=== PATIENT | female | born 1960 | race Two or more races ===

== ENCOUNTER 2025-01-01 06:59 | Outpatient (OUT) | payer BC, SELFPAY ==
--- OUTSIDE RECORDS SUMMARY | 2022-08-12 09:00 | XMS_ITS | Continuity of Care Document ---
Author Organization [facility] Address [address] [place] [address] Phone Care Team Providers Care Cyber Software Engineer Name Role Phone Malaika QUINTEROS Andre Unavailable Unavailable Procedures Procedure Date COVID-19 Antigen Test COVID-19 Antigen Test Advance Directives Directive Yes / No Effective Date File Name No Information Encounters Encounter Description Practice Location Reason(s) For Visit Diagnoses Date Provider Providers Copied on Encounter [facility], [address], [place], [id number], [place] tel:[phone] COVID [facility] Encounter For Screening For Covid-19 Malaika Bishop. [address], [place], [id number], [place]. tel:[phone] Family History Family Member Type Diagnosis Age At Onset No Information Payers Payer name Insurance type Covered libertarian ID Authoriza tion(s) No Information Social History Type Description Quantity Date Captured Comments Alcohol Use Details Unknown Caffeine Use Details Unknown Tobacco Use Status No Information Smoking Status No Information Sex Female Sexual Orientation Straight or heterosexual Gender Identity Female Chief Complaint And Reason For Visit No Information Reason For Referral Reason For Referral No Information Plan Of Treatment Date Type Action Status Goal Depression screening. Due on due Goal Mammogram. Due on due Goal Zoster vaccine (1st). Due on due Goal FOBT. Due on due Goal Tdap. Due on due Goal Colonoscopy. Due on due Goal Lipid panel. Due on due Goal Tdap Vaccine. Due on 2022 due Goal PRAPARE ASSESSMENT. Due on A due Goal Influenza vaccine. Due on Ap r due History Of Present Illness Encounter Date Complaint History Of Prese nt Illness No Information Functional Status Date Functional Assessmen t No Information Instructions Date Instruction Additional Infor mation No Information Assessments Type Assessment Date assessment Encounter For Screening For Covi d- Patient Care Teams Name Effective Dates (start - stop) Status Members No Information
--- OUTSIDE RECORDS SUMMARY | 2025-01-01 07:05 | XMS_ITS | Encounter Summary ---
Author Organization [facility] Address [address] [place] [address] Care Team Providers Care Delivery Merchandiser Name Role Phone Sharath Jolley MD Primary Care Provider [phone] Shabnam West LIME BURNER Unavailable [phone] Sharath Jolley MD Primary Care Provider [phone] Shabnam West LIME BURNER Unavailable [phone] Encounter Details Date Type Department Care Team (Late st Contact Info) Description 04/23/2023 Abstract [facility] [address] [place] [address] Shabnam West LIME BURNER [address] [place] [address] Social History Tobacco Use Types Packs/Day Years Used Date Smoking Tobacco: Never Tobacco Cessation:Counseling Given: Not Answered Alcohol Use Standard Drinks/Week Comments Yes 0 (1 standard drink = 0.6 oz pure alcohol) a variable amount, caffeine: chocolate, tea Comments Unknown Sex and Gender Information Value Date Recorded Sex Assigned at Not on file Legal Sex Female 6:37 PM EDT Gender Identity Not on file Sexual Orientation Not on file documented as of this encounter Plan of Treatment Not on file documented as of this encounter Visit Diagnoses Not on filedocumented in this encounter Care Teams Delivery Merchandiser Relationship Specialty Start Date End Date Sharath Jolley MD PCP - General Family Medicine 02/09/23 08/20/23 Sharath Jolley MD PCP - General Family Medicine 08/21/23 Shabnam West NP [address] [place] [address] PCP - [facility] 02/23/24 Shabnam West NP Nurse Practitioner Family Medicine 02/09/23 documented as of this encounter
--- OUTSIDE RECORDS SUMMARY | 2025-01-01 07:05 | XMS_ITS | Encounter Summary ---
Author Organization [facility] Address [address] [place] [address] Care Team Providers Care Route Contractor Name Role Phone Sharath Jolley MD Primary Care Provider [phone] Shabnam West NP Unavailable [phone] Sharath Jolley MD Primary Care Provider [phone] Shabnam West NP Unavailable [phone] Encounter Details Date Type Department Care Team (Late st Contact Info) Description 04/19/2023 Orders Only [facility] [address] [place] [address] Shabnam West NP [address] [place] [address] Social History Tobacco Use Types Packs/Day Years Used Date Smoking Tobacco: Never Comments Unknown Sex and Gender Information Value Date Recorded Sex Assigned at Not on file Legal Sex Female 6:37 PM EDT Gender Identity Not on file Sexual Orientation Not on file documented as of this encounter Plan of Treatment Not on file documented as of this encounter Procedures Procedure Name Priority Date/Time Associated Diagnosis Comments MISCELLANEOUS LAB TEST Routine 03/22/2023 10:36 AM EST documented in this encounter Results * - Miscellaneous Test (03/22/2023 10:36 AM EST) us Shabnam Aichholz SUPERVISOR TILE AND MOTTLE LAB BLOOD ORDERABLES Final Resu lt documented in this encounter Visit Diagnoses Not on filedocumented in this encounter Care Teams Route Contractor Relationship Specialty Start Date End Date Sharath Jolley MD PCP - General Family Medicine 02/09/23 08/20/23 Sharath Jolley MD PCP - General Family Medicine 08/21/23 Shabnam West NP [address] [place] [address] PCP - [facility] 02/23/24 Shabnam West NP Nurse Practitioner Family Medicine 02/09/23 documented as of this encounter
--- OUTSIDE RECORDS SUMMARY | 2025-01-01 07:05 | XMS_ITS | Patient Health Record ---
Author Organization [facility] Address [address] [place], [place] [id number] Care Team Providers Care Fire Extinguisher Repairer Name Role Phone Juan Ramon Simon Unavailable [phone] Allergies No Known Allergies Reason For Referral No Information Social History Tobacco Use: Social History Observation Description Date Details (start date - stop date) Never Smoker NA - NA Sex Assigned At : Social History Observation Description Sex Assigned At Female Tobacco Use/Smoking Question Answer Notes Tobacco use: nonsmoker Problems Problem Type SNOMED Code ICD Code Onset Dates Problem Status W/U Status Risk Notes Problem Elevated blood-pressure reading without diagnosis of hypertension (308855491) Elevated blood pressure reading (R03.0) Active confirmed Problem 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
--- OUTSIDE RECORDS SUMMARY | 2025-01-01 07:05 | XMS_ITS | Encounter Summary ---
Author Organization [facility] Address [address] [place] [address] Care Team Providers Care Postdoctoral Scientist Name Role Phone Shabnam West MANAGER [place] Unavailable [phone] Sharath Jolley MD Primary Care Provider [phone] Shabnam West MANAGER [place] Unavailable [phone] Reason for Visit * Reason Comments Med Refill Encounter Details Date Type Department Care Team (Late st Contact Info) Description 04/08/2024 Refill [facility] [address] [place] [address] Shabnam West NP [address] [facility] [place] [address] Generalized anxiety disorder with panic attacks ; Moderate episode of recurrent major depressive disorder (HCC) Social History Tobacco Use Types Packs/Day Years Used Date Smoking Tobacco: Never Alcohol Use Standard Drinks/Week Comments Yes 0 (1 standard drink = 0.6 oz pure alcohol) a variable amount, caffeine: chocolate, tea Humiliation, Afraid, Rape, and Kick questionnair e Answer Date Recorded Within the last year, have y ou been afraid of your partner or ex-partner? No 05/07/2023 Within the last year, have y ou been humiliated or emotionally abused in other ways by your partner or ex-partner? No Within the last year, have y ou been kicked, hit, slapped, or otherwise physically hurt by your partner or ex-partner? No 05/07/2023 Within the last year, have y ou been raped or forced to have any kind of sexual activity by your partner or ex-partner? No 05/07/2023 Social Connection and Isolat ion Panel [NHANES] Answer Date Recorded In a typical week, how many times do you talk on the phone with family, friends, or neighbors? More than three times a week 05/07/2023 How often do you get togethe r with friends or relatives? Once a week 05/07/2023 How often do you attend chur TRIRIGA or mormon services? Never 05/07/2023 Do you belong to any clubs o r organizations such as temple groups, unions, fradeeplocal or athletic groups, or school groups? No 05/07/2023 How often do you attend meet ings of the clubs or organizations you belong to? Never 05/07/2023 Are you , , di vorced, , never , or living with a partner? 05/07/2023 AUDIT-C Answer Date Recorded Q1: How often do you have a drink containing alcohol? Never 05/07/2023 Q2: How many drinks containi ng alcohol do you have on a typical day when you are drinking? Patient does not drink Q3: How often do you have si x or more drinks on one occasion? Never 05/07/2023 Overall Financial Resource Strain (CARDIA) Answe r Date Recorded How hard is it for you to pa y for the very basics like food, housing, medical care, and heating? Not hard at all 05/07/2023 [facility] - Occupational Stress Questionnaire Answer Date Recorded Do you feel stress - tense, restless, nervous, or anxious, or unable to sleep at night because your mind is troubled all the time - these days? Very much 05/07/2023 Exercise Vital Sign Answer Date Recorde d On average, how many days pe r week do you engage in moderate to strenuous exercise (like a brisk walk)? 0 days 05/07/2023 On average, how many minutes do you engage in exercise at this level? 0 min 05/07/2023 Hunger Vital Sign Answer Date Recorded Within the past 12 months, y ou worried that your food would run out before you got the money to buy more. Never true 05/07/19 24 Within the past 12 months, t he food you bought just didn't last and you didn't have money to get more. Never true 05/07/2023 PRAPARE - Transportation Answer Date Re corded In the past 12 months, has l ack of transportation kept you from medical appointments or from getting medications? No 04/24 In the past 12 months, has l ack of transportation kept you from meetings, work, or from getting things needed for daily living? No 05/07/2023 Housing Stability Vital Sign Answer Emile e Recorded In the last 12 months, was t here a time when you were not able to pay the mortgage or rent on time? No 05/07/2023 In the last 12 months, how many places have you lived? 1 05/07/2023 In the last 12 months, was t here a time when you did not have a steady place to sleep or slept in a [place] [facility] [place] (including now)? No 05/07/2023 Comments Unknown Sex and Gender Information Value Date Recorded Sex Assigned at Not on file Legal Sex Female 6:37 PM EDT Gender Identity Not on file Sexual Orientation Not on file documented as of this encounter Plan of Treatment Not on file documented as of this encounter Visit Diagnoses Diagnosis Generalized anxiety disorder with panic attacks Moderate episode of recurrent major depressive disorder (HCC) documented in this encounter Care Teams Postdoctoral Scientist Relationship Specialty Start Date End Date Sharath Jolley MD PCP - General Family Medicine 08/21/23 Shabnam West NP [address] [place] [address] [facility] 02/23/24 Shabnam West NP Nurse Practitioner Family Medicine 02/09/23 documented as of this encounter
--- OUTSIDE RECORDS SUMMARY | 2025-01-01 07:05 | XMS_ITS | Encounter Summary ---
Author Organization [facility] Address [address] [place] [address] Care Team Providers Care Medieval English Literature Professor Name Role Phone Shabnam West NP Unavailable [phone] Sharath Jolley MD Primary Care Provider [phone] Encounter Details Date Type Department Care Team (Late st Contact Info) Description 11/08/2024 Orders Only [facility] [address] [place] [address] Shabnam West NP [address] [place] [address] Social History Tobacco Use Types Packs/Day Years Used Date Smoking Tobacco: Never Alcohol Use Standard Drinks/Week Comments Yes 0 (1 standard drink = 0.6 oz pure alcohol) a variable amount, caffeine: chocolate, tea [id number] Health Literacy Answer Date Recor ded How often do you need to hav e someone help you when you read instructions, pamphlets, or other written material from your doctor or pharmacy? Never 05/09/2024 Humiliation, Afraid, Rape, and Kick questionnair e [...] neighbors? More than three times a week 05/09/2024 How often do you get togethe r with friends or relatives? Once a week 05/09/2024 How often do you attend chur ch or cheondoism services? Never 05/09/2024 Do you belong to any clubs o r organizations such as mu-ism groups, unions, fraOnBeep or athletic groups, or school groups? No 05/09/2024 How often do you attend meet ings of the clubs or organizations you belong to? Never 05/09/2024 Are you , , di vorced, , never , or living with a partner? 05/09/2024 AUDIT-C Answer Date Recorded Q1: How often do you have a drink containing alcohol? Never 05/09/2024 Q2: How many drinks containi ng alcohol do you have on a typical day when you are drinking? Patient does not drink Q3: How often do you have si x or more drinks on one occasion? Never 05/09/2024 Overall Financial Resource Strain (CARDIA) Answe r Date Recorded How hard is it for you to pa y for the very basics like food, housing, medical care, and heating? Not very hard 05/09/2024 [facility] - Occupational Stress Questionnaire Answer Date Recorded Do you feel stress - tense, restless, nervous, or anxious, or unable to sleep at night because your mind is troubled all the time - these days? Very much 05/09/2024 Exercise Vital Sign Answer Date Recorde d On average, how many days pe r week do you engage in moderate to strenuous exercise (like a brisk walk)? 0 days 05/09/2024 On average, how many minutes do you engage in exercise at this level? 0 min 05/09/2024 Hunger Vital Sign Answer Date Recorded Within the past 12 months, y ou worried that your food would run out before you got the money to buy more. Never true 05/09/19 25 Within the past 12 months, t he food you bought just didn't last and you didn't have money to get more. Never true 05/09/2024 PRAPARE - Transportation Answer Date Re corded In the past 12 months, has l ack of transportation kept you from medical appointments or from getting medications? No 04/24 In the past 12 months, has l ack of transportation kept you from meetings, work, or from getting things needed for daily living? No 05/09/2024 Housing Stability Vital Sign Answer Emile e [...] place to sleep or slept in a fpc (including now)? No 05/07/2023 Housing Stability Vital Sign Answer Emile e Recorded In the last 12 months, was t here a time when you were not able to pay the mortgage or rent on time? No 05/09/2024 In the past 12 months, how m any times have you moved where you were living? 0 05/09/2024 At any time in the past 12 m [facility], were you homeless or living in a fpc (including now)? No 05/09/2024 Comments Unknown Sex and Gender Information Value Date Recorded Sex Assigned at Not on file Legal Sex Female 6:37 PM EDT Gender Identity Not on file Sexual Orientation Not on file documented as of this encounter Plan of Treatment Not on file documented as of this encounter Procedures Procedure Name Priority Date/Time Associated Diagnosis Comments SCANNED LABS Routine 11/08/2024 9:49 AM EDT documented in this encounter Results * SCANNED LABS (11/08/2024 9:49 AM EDT) us Shabnam West GEOTHERMAL PLANT MANAGER LAB CHG PERFORMABLES Final Resu lt documented in this encounter Visit Diagnoses Not on filedocumented in this encounter Care Teams Medieval English Literature Professor Relationship Specialty Start Date End Date Sharath Jolley MD PCP - General Family Medicine 08/21/23 Shabnam West NP Nurse Practitioner Family Medicine 02/09/23 documented as of this encounter
--- OUTSIDE RECORDS SUMMARY | 2025-01-01 07:05 | XMS_ITS | Clinical Summary ---
Author Organization [facility] Address [address] [place] [address] Care Team Providers Care Fishing Tool Operator Name Role Phone Shabnam West NP Unavailable [phone] Sharath Jolley MD Primary Care Provider [phone] Allergies No known active allergies Medications OLANZapine (ZyPREXA) 2.5 MG tabletIndicatio ns:Generalized anxiety disorder with panic attacks,Major depressive disorder, recurrent, moderate (HCC) Take 1 tablet (2.5 mg) by mouth at bedtime 30 tablet 1 11/25/2024 Active Active Problems Problem Noted Date Diagnosed Date Encounter for adult wellness visit 05/09/2024 Assessment & Plan (05/09/2024 7:30 AM EST): Reviewed Ht/Wt/BMI Recommend eye exam yearly Recommend dental exams twice a year Balance work/leisure activities Exercises is recommended most days of the week (appropriate as chronic conditions allow) Follow up yearly and prn Chronic tension-type headache, not intractable 0 05/09/2024 Assessment & Plan (05/09/2024 3:34 PM EST): Secondary causes: migraines, stress, high blood pressure, stopping caffeine Recommend eye exam Follow up in 6 weeks Normal neuro exam, no red flag descriptors Generalized anxiety disorder with panic attacks 02/28/2024 Assessment & Plan (11/25/2024 7:18 PM EDT): See depression Assessment & Plan (05/09/2024 3:25 PM EST): Last appt started escitalopram Overall about 50% better Assessment & Plan (04/04/2024 3:31 PM EST): Last appt started fluoxetine was helping sxs, but side effect night cruz and fatigue Will stop fluoxetine, trial lexapro at 10mg daily Take medication only as directed. This medication will take approximately 4-6 weeks to become effective. If any suicidal thoughts, thoughts of hurting others, or hallucinations contact the office or proceed to the Emergency Room for mental health evaluation. Medication may cause dry mouth, dizziness, and in some cases worsening in depression symptoms. Please contact the office if these occur. Fu in 4 weeks Assessment & Plan (02/28/2024 10:15 AM EST): Will start fluoxetine 10mg Consider counseling in the future Take medication only as directed. This medication will take approximately 4-6 weeks to become effective. If any suicidal thoughts, thoughts of hurting others, or hallucinations contact the office or proceed to the Emergency Room for mental health evaluation. Medication may cause dry mouth, dizziness, and in some cases worsening in depression symptoms. Please contact the office if these occur. Fu in 4 weeks Major depressive disorder, recurrent, moderate 1 04/29/2023 Assessment & Plan (11/25/2024 7:18 PM EDT): Trialed several SSRI/SNRI and wellbutrin and buspar Trial HS olanzapine Advised of side effects Fu in 6 weeks Assessment & Plan (05/09/2024 3:25 PM EST): Last appt started escitalopram 50% improvement in symptoms Assessment & Plan (04/04/2024 3:32 PM EST): Last visit we started flouxetine Stop fluoxetine, will trial lexapro at 10mg daily Take medication only as directed. This medication will take approximately 4-6 weeks to become effective. If any suicidal thoughts, thoughts of hurting others, or hallucinations contact the office or proceed to the Emergency Room for mental health evaluation. Medication may cause dry mouth, dizziness, and in some cases worsening in depression symptoms. Please contact the office if these occur. Fu in 4 weeks Assessment & Plan (02/28/2024 10:15 AM EST): Start fluoxetine at 10mg Consider counseling in the future Take medication only as directed. This medication will take approximately 4-6 weeks to become effective. If any suicidal thoughts, thoughts of hurting others, or hallucinations contact the office or proceed to the Emergency Room for mental health evaluation. Medication may cause dry mouth, dizziness, and in some cases worsening in depression symptoms. Please contact the office if these occur. Class 1 obesity due to exces s calories without serious comorbidity with body mass index (BMI) of 31.0 to 31.9 in adult 02/28/2024 Assessment & Plan (11/25/2024 7:53 AM EDT): Discussed with patient their BMI (actual, verses recommended). We have also discussed lifestyle modifications: attempts to perform physical activity as chronic conditions allow, also to monitor dietary intake: increasing protein/fruits/veggies and lowering carb intake (unless contraindicated). Limit sodas, juices, and sugary drinks. Goal weight 155 lbs Assessment & Plan (05/09/2024 3:28 PM EST): Discussed with patient their BMI (actual, verses recommended). We have also discussed lifestyle modifications: attempts to perform physical activity as chronic conditions allow, also to monitor dietary intake: increasing protein/fruits/veggies and lowering carb intake (unless contraindicated). Limit sodas, juices, and sugary drinks. Goal weight 155 lbs Assessment & Plan (04/04/2024 7:31 AM EST): Discussed with patient their BMI (actual, verses recommended). We have also discussed lifestyle modifications: attempts to perform physical activity as chronic conditions allow, also to monitor dietary intake: increasing protein/fruits/veggies and lowering carb intake (unless contraindicated). Limit sodas, juices, and sugary drinks. Assessment & Plan (02/28/2024 10:10 AM EST): Discussed with patient their BMI (actual, verses recommended). We have also discussed lifestyle modifications: attempts to perform physical activity as chronic conditions allow, also to monitor dietary intake: increasing protein/fruits/veggies and lowering carb intake (unless contraindicated). Limit sodas, juices, and sugary drinks. Also discussed oral medications that can be utilized for weight loss, as well as surgical options for weight loss. Encounter for screening mamm ogram for malignant neoplasm of breast 01/04/2024 Acute cystitis without hematuria 01/04/2024 Assessment & Plan (01/04/2024 1:07 PM EDT): Urine dip +leukocytes, and no nitrites or blood Will treat with macrobid, fluids, rest, fu if not better Non toxic looking Epigastric pain 01/04/2024 Assessment & Plan (11/25/2024 7:16 PM EDT): Not noted a relationship with eating etc Reviewed labs from a few weeks ago Will order GBUS, consider LISA Has lost weight, however reports she has changed her diet and is eating airplane cleaner LFT's normal with recent labs Assessment & Plan (01/04/2024 1:09 PM EDT): Sxs started around time urinary Not noted a relationship with eating etc Will see if this continues once finished with ATB At this point pt states she will call for an appt if continues We did discuss s/s gallbladder symptoms Urge incontinence of urine 08/21/2023 Overactive bladder 08/21/2023 Hypertension 08/21/2023 Assessment & Plan (11/25/2024 7:53 AM EDT): Has had elevations in prior office visits Please check blood pressure daily and record DASH diet Limit caffeine Take medication as directed Contact office if chest pain, pressure, dizziness, shortness of breath, swelling legs No current meds Assessment & Plan (05/09/2024 7:27 AM EST): Has had elevations in prior office visits Please check blood pressure daily and record DASH diet Limit caffeine Take medication as directed Contact office if chest pain, pressure, dizziness, shortness of breath, swelling legs No current meds Left flank pain 08/21/2023 Asymptomatic microscopic hematuria 08/21/2023 Gastroesophageal reflux disease without esophagi tis 08/21/2023 Assessment & Plan (11/25/2024 7:17 PM EDT): Could not tolerate PPI therapy Assessment & Plan (05/09/2024 3:24 PM EST): Recommendations: freq small meals, nothing to eat or drink at least 2 hours prior to bed, limit caffeine, alcohol, as well as spicy foods Meds to limit or avoid if possible: NSAIDS Elevate HOB if possible Pt eliminated caffeine Current med: pantoprazole if as needed Assessment & Plan (08/21/2023 6:39 PM EDT): Trial pantoprazole 20mg daily Fu in 6 weeks Differntials for abd pain: diverticulosis/itis, GERD, ulcer Offered CT abd/pelvis-pt declined at this time d/t financial constraints of paying off other medical bills Non toxic at this time Will assess at fu Environmental and seasonal allergies 08/21/2023 ORLY (obstructive sleep apnea) 08/21/2023 Hypoglycemia 05/08/2023 Assessment & Plan (05/08/2023 7:52 PM EST): Check labs, unclear etiology Dizziness 05/08/2023 Assessment & Plan (05/08/2023 7:52 PM EST): Possible anxiety? Also check labs Fu in 4 weeks Resolved Problems Problem Noted Date Diagnosed Date Resolved Date BMI 30.0-30.9,adult 05/08/2023 01/04/20 24 Anxiety and depression 05/08/202302/27 Assessment & Plan (05/08/2023 7:52 PM EST): Has trialed many meds in the past, stopped d/t side effects Trial wellbutrin XL, fu in 4 weeks Encounters Date Type Department Care Team Description 11/25/2024 6:20 PM EDT Office Visit [facility] [address] [place] [id number] Shabnam West NP Generalized anxiety disorder with panic attacks (Primary Dx); Major depressive disorder, recurrent, moderate (HCC); Epigastric pain; Gastroesophageal reflux disease without esophagitis; Class 1 obesity due to excess calories without serious comorbidity with body mass index (BMI) of 31.0 to 31.9 in adult 11/25/2024 Bamboo flowsheet [facility] [address] [place] [address] Shabnam West NP 11/25/2024 Travel 11/08/2024 Orders Only [facility] [address] [place] [address] Shabnam West NP from Last 3 Months Immunizations Immunization Administration Dates Next Due Hep B, adult 03/14/2013,10/09/2012,09/11/2012 Influenza, injectable, MDCK, preservative free, quadrivalent 01/31/2023,01/21/2020,01/11/2019,2017 Carlin SARS-CoV-2 03/04/2021,01/28/2021 Pfizer Purple Cap SARS-CoV-2 Vaccination 04/09/2021,03/17/2021 Tdap 07/08/2011 Family History Medical History Relation Name Comments Hypertension Father Hypertension Mother Diabetes Sister Relation Name Status Comments Father Alive Mother Alive Sister Social History Tobacco Use Types Packs/Day Years [...] 05/09/2024 How often do you attend chur or lutheran services? Never 05/09/2024 Do you belong to any clubs o r organizations such as religion groups, unions, fraternal or athletic groups, or school groups? No [...] care, and heating? Not very hard 05/09/2024 [facility] - Occupational Stress [...] any time in the past 12 m [facility], were you homeless or living in a fpc (including now)? No 05/09/2024 Comments Unknown Sex and Gender Information Value Date Recorded Sex Assigned at Not on file Legal Sex Female 6:37 PM EDT Gender Identity Not on file Sexual Orientation Not on file Last Filed Vital Signs Vital Sign Reading Time Taken Comments Blood Pressure 142/86 11/25/2024 6:33 PM EDT Pulse 61 11/25/2024 6:33 PM EDT Temperature 36.9 C (98.5 F) 11/25/2024 6:33 PM EDT Respiratory Rate 18 11/25/2024 6:33 PM EDT Oxygen Saturation 98% 11/25/2024 6:33 PM EDT Inhaled Oxygen Concentration - - Weight 73.2 kg (161 lb 6.4 oz) 11/25/2024 6:33 P M EDT Height 157.5 cm (5' 2 ) 05/09/2024 2:49 PM EST Body Mass Index 29.52 05/09/2024 2:49 PM EST Plan of Treatment Health Maintenance Due Date Last Done Comments CT Colonography 1961 FIT-DNA 1961 FIT 1961 FOBT 1960 Sigmoidoscopy 1960 Pap Smear 1982 HPV/Cotest 1991 Colonoscopy 09/08/2024 09/08/2014 Colorectal Cancer Screening 09/08/2024 Influenza Vaccine (#1) 2024 , 01/21/2020, 01/11/2019, Additional history exists Mammogram 01/18/2025 01/19/2024 Cervical Cancer Screening Discontinued Procedures Procedure Name Priority Date/Time Associated Diagnosis Comments SCANNED LABS Routine 11/08/2024 9:49 AM EDT BI MAMMOGRAM SCREENING TOMOSYNTHESIS BILATERAL Routine 01/19/2024 1:54 PM EDT Encounter for screening mammogram for malignant neoplasm of breast COLONOSCOPY Routine 09/08/2014 12:00 PM EDT from Last 3 Months or Most Recently Relevant to Health Maintenance Results * SCANNED LABS (11/08/2024 9:49 AM EDT) us Shabnam West NP LAB CHG PERFORMABLES Final Resu lt * Bilateral screening mammogram with tomosynthesis (01/19/2024 1:54 PM EDT) Anatomical Region Laterality Modality Breast Bilateral Mammography 01/19/2024 2:16 PM EDT Impressions 01/19/2024 2:24 PM EDT Impression: No specific evidence of malignancy seen in either breast. Breast Density: There are scattered areas of fibroglandular density BiRads: BIRADS 2 - Benign Recommended follow-up: Routine Screening Mamm ELECTRONICALLY SIGNED BY: Denilson Rivero M.D. Narrative 01/19/2024 2:24 PM EDT Examination: BI MAMMOGRAM SCREENING TOMOSYNTHESIS BILATERAL Clinical History: breast cancer screening Technique: Screening digital mammography study of both breasts was performed with 2-D and 3-D tomosynthesis imaging. No prior study available for comparison. Findings: There is no evidence of dominant spiculated mass, grouped microcalcifications, or skin thickening which would be suggestive of malignancy. A few benign-appearing calcifications are seen bilaterally. Procedure Note Denilson Rivero MD - 01/19/2024 Examination: BI MAMMOGRAM SCREENING TOMOSYNTHESIS BILATERAL Clinical History: breast cancer screening Technique: Screening digital mammography study of both breasts wasperformed with 2-D and 3-D tomosynthesis imaging. No prior study availablefor comparison. Findings: There is no evidence of dominant spiculated mass, groupedmicrocalcifications, or skin thickening which would be suggestive ofmalignancy. A few benign-appearing calcifications are seen bilaterally. IMPRESSION: Impression: No specific evidence of malignancy seen in either breast. Breast Density: There are scattered areas of fibroglandular density BiRads: BIRADS 2 - Benign Recommended follow-up: Routine Screening Mamm ELECTRONICALLY SIGNED BY: Denilson Rivero M.D. hSabnam West NP IMG BI PROCEDURES Final Result * Colonoscopy (09/08/2014 12:00 PM EDT) Anatomical Region Laterality Modality Endoscopy 09/08/2014 12:0 0 PM EDT Narrative 09/08/2014 12:00 PM EDT PERFORMED AT [facility] LOCATION:[id number] Diverticula, Internal Hemorrhoids Procedure Note CONVERSION, GENERIC - 09/08/2022 PERFORMED AT [facility] LOCATION:[id number] Diverticula, Internal Hemorrhoids Kieran Guidry MD ENDOSCOPY PROCEDURE ORDERABLES F inal Result from Last 3 Months or Most Recently Relevant to Health Maintenance Insurance [facility] Care Teams Fishing Tool Operator Relationship Specialty Start Date End Date Sharath Jolley MD PCP - General Family Medicine 08/21/23 Shabnam West NP Nurse Practitioner Family Medicine 02/09/23
--- OUTSIDE RECORDS SUMMARY | 2025-01-01 07:05 | XMS_ITS | Encounter Summary ---
Author Organization [facility] Address [address] [place] [address] Care Team Providers Care Animal Pathologist Name Role Phone Sharath Jolley MD Primary Care Provider [phone] Shabnam West CAR SWEEPER Unavailable [phone] Sharath Jolley MD Primary Care Provider [phone] Shabnam West CAR SWEEPER Unavailable [phone] Encounter Details Date Type Department Care Team (Late st Contact Info) Description 05/17/2023 Orders Only [facility] [address] [place] [address] Shabnam West CAR SWEEPER [address] [place] [address] Social History Tobacco Use Types Packs/Day Years [...] 05/07/2023 How often do you attend chur or roman catholic services? Never 05/07/2023 Do you belong to any clubs o r organizations such as rastafarian groups, unions, fraternal or athletic groups, or [...] and heating? Not hard at all 05/07/2023 [facility] - Occupational Stress [...] place to sleep or slept in a usp (including now)? No 05/07/2023 Comments Unknown Sex and Gender Information Value Date Recorded Sex Assigned at Not on file Legal Sex Female 6:37 PM EDT Gender Identity Not on file Sexual Orientation Not on file documented as of this encounter Plan of Treatment Not on file documented as of this encounter Procedures Procedure Name Priority Date/Time Associated Diagnosis Comments MISCELLANEOUS LAB TEST Routine 05/16/2023 10:31 AM EST documented in this encounter Results * - Miscellaneous Test (05/16/2023 10:31 AM EST) Shabnam West CAR SWEEPER LAB BLOOD ORDERABLES Final Resu lt documented in this encounter Visit Diagnoses Not on filedocumented in this encounter Care Teams Animal Pathologist Relationship Specialty Start Date End Date Sharath Jolley MD PCP - General Family Medicine 02/09/23 08/20/23 Sharath Jolley MD PCP - General Family Medicine 08/21/23 Shabnam West NP [address] [place] [address] PCP - Dedrick Boyer 02/23/24 Shabnam West NP Nurse Practitioner Family Medicine 02/09/23 documented as of this encounter
--- NOTE | 2025-01-01 07:10 | US_ITS ---
The [address] [address] Patient Name: FAM ESPARZA MRN: [id number] date: 1960 Sex: F Assigned Patient Location: US Current Patient Location: US Accession/Order Number: [id number] Exam Date: 01/01/2025 07:11 Report Date: 01/01/2025 08:35 At the request of: AMIE SANTOS NP Procedure: US right upper quadrant LIMITED RIGHT UPPER QUADRANT ABDOMINAL ULTRASOUND CLINICAL HISTORY: Epigastric pain and nausea for the past 2 weeks R10.13 COMPARISON: CT 07/16/2021 The gallbladder is physiologically distended without shadowing calculi, wall thickening or pericholecystic fluid. No intrahepatic biliary dilatation is evident. The common duct is borderline prominent measuring 6 mm. No filling defects are identified within the imaged segment . The liver parenchyma shows increased echogenicity suggesting fatty infiltration. Focal fatty sparing is suspected near the gallbladder fossa. There is appropriate hepatopetal flow within the main portal vein. The pancreas shows no significant sonographic abnormality. Evaluation of the right kidney reveals no hydronephrosis or fluid within Her's pouch. US/US right upper quadrant IMPRESSION: FATTY LIVER. NO GALLBLADDER PATHOLOGY. BORDERLINE PROMINENT COMMON DUCT Impression dictated by: Arielle Manuel M.D. 01/01/2025 8:35 AM Dictation Location: [place] [address] Electronically authenticated by: [id number] Y Date: 01/01/2025 08:35
== END 2025-01-01 07:00 | disposition home or self-care (01) ==
LOC: US 07:03
PROVIDERS: PCP Nurse Practitioner; Visit Provider Nurse Practitioner
DX: R10.13 Epigastric pain (principal); K76.0 Fatty (change of) liver, not elsewhere classified
CPT/HCPCS: 76705

== ENCOUNTER 2025-01-09 16:17 | Emergency (ER) | payer BC, SELFPAY ==
[2025-01-09] VITALS (27 sets, daily range): BP systolic 151–208; BP diastolic 76–82; PULSE 67–109; TEMP 36.9; O2SAT 94–100; BMI 27.0
--- NOTE | 2025-01-09 17:49 | ECG_ITS ---
The [facility] Test Date: 2025-01-09 Pat Name: FAM ESPARZA Department: Room: - Gender: Female Welder Fitter Arc: : 1960 Requested By: [id number] Order Number: [id number] Reading MD: ZHENG PÉREZ M.D. Measurements Intervals [place] Rate: 66 P: 52 CA: 178 QRS: 16 QRSD: 88 T: 23 QT: 384 QTc: 397 Interpretive Statements 1100 Sinus rhythm 9110 normal ECG No previous ECG available for comparison Electronically Signed On 01-09-2025 18:17:55 EDT by ZHENG PÉREZ M.D.
--- NOTE | 2025-01-09 17:50 | ED.GENADUL1 ---
HPI HPI - General Adult General Chief complaint: Back Pain/Injury Stated complaint: BACK PAIN Time Seen by Provider: 01/09/25 17:37 Source: patient Mode of arrival: walk-in Limitations: no limitations History of Present Illness HPI narrative: 64-year-old female presents for back pain. She has had it for about 2 weeks and continuously for a week and a half. There was no injury. It started right after coming back from a plane trip from [place]. She saw her PCP today and she directed her here for further testing, worried about a PE. No fever or cough or injury. No weakness or numbness in her legs or arms. No headache or neck pain. Related Data Allergies Allergy/AdvReac Type Severity Reaction Status Date / Time No Known Drug Allergies Allergy Verified 01/09/25 16:21 Opioid HPI Opioid Management Most Recent Opioid Data: Last Pain Scale 8 Today, 18:09 Last MAR Pain Assessment Today, 17:55 Review of Systems ROS Narrative A ten point review of systems is negative except as noted above. PFSH PFSH Social History Little interest or pleasure in doing things: not at all Feeling down, depressed, or hopeless: not at all Exam Narrative Exam Narrative: Nurses note and vital signs reviewed and patient is not hypoxic. General: The patient appears uncomfortable and is in no respiratory distress Skin: Warm, dry, no pallor noted. There is no rash noted including on her back. Head: Normocephalic, atraumatic Eye: Normal conjunctiva, no drainage Ears, Nose, Mouth, and Throat: oral mucosa is moist. Nares patent. Cardiovascular: Regular Rate and Rhythm Respiratory: Patient is in no distress, no accessory muscle use, lungs are clear to auscultation, no wheezing, rales or rhonchi Back: There is no bruise or rash. She has some tenderness in the mid thoracic spine area at the midline. No crepitus. No tenderness in the C-spine or lumbar spine. GI: Soft and non- Musculoskeletal: The patient has no evidence of calf tenderness, no pitting edema, symmetrical pulses noted bilaterally Neurological: A&O, normal speech Psychiatric: Cooperative Constitutional Vital Signs, click to edit/add: Last Vital Signs Temp 98.4 F 01/09/25 16:22 Pulse 67 01/09/25 16:22 Resp 18 01/09/25 16:22 BP 180/82 H 01/09/25 17:50 Pulse Ox 100 01/09/25 16:22 O2 Del Method Room Air 01/09/25 16:22 Course Vital Signs Vital signs: Vital Signs Temperature 98.4 F 01/09/25 16:22 Pulse Rate 67 01/09/25 16:22 Respiratory Rate 18 01/09/25 16:22 Pulse Oximetry 100 01/09/25 16:22 Oxygen Delivery Method Room Air 01/09/25 16:22 Temperature 98.4 F 01/09/25 16:22 Pulse Rate 67 01/09/25 16:22 Respiratory Rate 18 01/09/25 16:22 Blood Pressure 180/82 H 01/09/25 17:50 Pulse Oximetry 100 01/09/25 16:22 Oxygen Delivery Method Room Air 01/09/25 16:22 Medical Decision Making MDM Narrative Medical decision making narrative: Initial workup is negative including chest x-ray. CTA chest is ordered to rule out PE and the patient is signed out to Dr. Mcneil at change of shift. Differential Diagnosis Differential Diagnosis: Muscle strain, PE, pneumothorax, pneumonia Lab Data Lab results reviewed: Yes I reviewed the patient's lab results Labs: Lab Results 01/09/25 Range/Units 17:45 WBC 5.5 (4.0-11.0) 10^3/uL RBC 3.44 L (4.20-5.40) 10^6/uL Hgb 10.7 L (12.0-16.0) g/dL Hct 31.5 L (36.0-48.0) % MCV 91.6 (81.0-99.0) fL MCH 31.1 (26.7-34.0) pg MCHC 34.0 (29.9-35.2) g/dL RDW 13.2 (11.0-15.0) % Plt Count 244 (150-450) 10^3/uL MPV 10.4 (9.5-13.5) fL Neut % (Auto) 51.4 (43.0-75.0) % Lymph % (Auto) 42.8 (20.5-60.0) % Spencer % (Auto) 3.8 (1.7-12.0) % Eos % (Auto) 1.3 (0.9-7.0) % Baso % (Auto) 0.5 (0.2-2.0) % Neut # (Auto) 2.9 (1.4-6.5) 10^3/uL Lymph # (Auto) 2.4 (1.2-3.8) 10^3/uL Spencer # (Auto) 0.2 L (0.3-0.8) 10^3/uL Eos # (Auto) 0.1 (0.0-0.7) 10^3/uL Baso # (Auto) 0.0 (0.0-0.1) 10^3/uL Abs Immat Gran (auto) 0.01 (0.00-0.03) 10^3/uL Imm/Tot Granulo (auto) 0.2 (0.0-0.5) % Sodium 139 (136-145) mmol/L Potassium 3.6 (3.5-5.1) mmol/L Chloride 101 (98-107) mmol/L Carbon Dioxide 27.3 (21.0-32.0) mmol/L Anion Gap 14.3 BUN 9.0 (7.0-18.0) mg/dL Creatinine 0.73 (0.55-1.02) mg/dL Est GFR ( Amer) >60 (>=60 mL/min/1.73m^2) Est GFR (Non-Af Amer) >60 (>=60 mL/min/1.73m^2) BUN/Creatinine Ratio 12.3 Glucose 94 (74-106) mg/dL Calcium 9.3 (8.5-10.1) mg/dL Troponin I High Sens <4.0 L (4.0-51.3) pg/mL Imaging Data Chest x-ray: Radiologist's impression: ITS Impressions Chest X-Ray 01/09/25 18:18 IMPRESSION: No acute cardiopulmonary pathology. Impression dictated by: Diaz Zamora M.D. 01/09/2025 6:29 PM Dictation Location: [place] [address] Electronically authenticated by: [id number] Y Date: 01/09/2025 18:29 ECG Data Attestation: I personally reviewed and interpreted this ECG as follows: (EK G on my interpretation shows sinus rhythm with a rate of 66 and no acute change) Discharge Plan Discharge Patient Disposition: Still a Patient
[2025-01-09] MEDS: MORPHINE SULFATE 4 MG/ML VIAL IV (17:55)
[2025-01-09 17:57] LABS: Hematocrit 31.5 % (36.0-48.0); Hemoglobin 10.7 g/dL (12.0-16.0); Immature Granulocytes Abs Auto 0.01 10^3/uL (0.00-0.03); Immature Granulocytes Pct Auto 0.2 % (0.0-0.5); Lymphocytes Absolute Auto 2.4 10^3/uL (1.2-3.8); Mean Corpuscular HGB Conc 34.0 g/dL (29.9-35.2); Mean Corpuscular Hemoglobin 31.1 pg (26.7-34.0); Mean Corpuscular Volume 91.6 fL (81.0-99.0); Platelet Count 244 10^3/uL (150-450); Red Blood Count 3.44 10^6/uL (4.20-5.40); White Blood Count 5.5 10^3/uL (4.0-11.0)
--- NOTE | 2025-01-09 18:18 | XR_ITS ---
[facility] [place] [id number] Patient Name: FAM ESPARZA MRN: [id number] date: 1960 Sex: F Assigned Patient Location: ED.MAIN Current Patient Location: ED.MAIN Accession/Order Number: [id number] Exam Date: 01/09/2025 18:15 Report Date: 01/09/2025 18:29 At the request of: ANTHONY PIEDRA MD Procedure: XR chest 1V XR chest 1V 01/09/2025 6:19 PM SIGNS AND SYMPTOMS: ^back pain ^Y PROTOCOL: Frontal radiograph of the chest COMPARISON: None FINDINGS: The trachea is midline. The heart and mediastinal structures are within normal limits. The lung parenchyma is clear. The bony thorax is intact. XR/XR chest 1V IMPRESSION: No acute cardiopulmonary pathology. Impression dictated by: Diaz Zamora M.D. 01/09/2025 6:29 PM Dictation Location: [place] [address] Electronically authenticated by: [id number] Y Date: 01/09/2025 18:29
[2025-01-09 18:19] LABS: Anion Gap 14.3; Blood Urea Nitrogen 9.0 mg/dL (7.0-18.0); Calcium 9.3 mg/dL (8.5-10.1); Carbon Dioxide 27.3 mmol/L (21.0-32.0); Chloride 101 mmol/L (98-107); Estimated GFR (African America >60 (>=60 mL/min/1.73m^2); Estimated GFR (Non-African Ame >60 (>=60 mL/min/1.73m^2); Glucose 94 mg/dL (74-106); Potassium 3.6 mmol/L (3.5-5.1); Sodium 139 mmol/L (136-145)
--- NOTE | 2025-01-09 18:53 | CT_ITS ---
[address] [address] Patient Name: FAM ESPARZA MRN: [id number] date: 1960 Sex: F Assigned Patient Location: ED.MAIN Current Patient Location: ED.MAIN Accession/Order Number: [id number] Exam Date: 01/09/2025 19:10 Report Date: 01/09/2025 19:30 At the request of: ANTHONY PIEDRA MD Procedure: CT angio chest CT angio chest 01/09/2025 7:18 PM SIGN AND SYMPTOMS: Back pain, recent travel CONTRAST: 100 mL of intravenous Omnipaque 350 TECHNIQUE: Multidetector CT axial slices of the chest were obtained with IV contrast. Multiplanar reformats were performed and viewed on a separate workstation and reviewed to further define anatomy and possible pathology. CT was performed with one or more of the following dose reduction techniques: Automated exposure control, adjustment of the mA and/or kV according to patient size, or use of iterative reconstruction technique. COMPARISON: None. FINDINGS: Lower neck: Thyroid gland within normal limits, no supraclavicle adenopathy. Vessels: Atherosclerotic changes are noted in the origin of the left subclavian artery. There is no pulmonary embolism. Mediastinum and Zoya: Within normal limits. Heart: There is mild cardiomegaly. No pericardial effusion. Airways: Within normal limits Lungs: Dependent atelectasis is noted in the lung bases. Pleura: Within normal limits. Chest Wall: Within normal limits. Upper Abdomen: Within normal limits. Bones: There is a destructive process in the T5 vertebral body with additional subtle areas of lucency at C6, C7, and T1. There is extraosseous extension into the spinal canal at T5 extending at least 7 mm thick canal contributing to spinal canal stenosis. There is a bony destructive process involving the anterior left fourth rib with extraosseous extension. CT/CT angio chest IMPRESSION: No pulmonary embolism. There is cardiomegaly. There is a destructive process in the T5 vertebral body with additional subtle areas of lucency at C6, C7, and T1. There is extraosseous extension into the spinal canal at T5 extending at least 7 mm thick canal contributing to spinal canal stenosis. There is a bony destructive process involving the anterior left fourth rib with extraosseous extension. Correlation with history of malignancy is recommended. Impression dictated by: Diaz Zamora M.D. 01/09/2025 7:30 PM Dictation Location: [place] [address] Electronically authenticated by: [id number] Y Date: 01/09/2025 19:30
--- NOTE | 2025-01-09 20:17 | CT_ITS ---
[address] [address] Patient Name: FAM ESPARZA MRN: [id number] date: 1960 Sex: F Assigned Patient Location: ER Current Patient Location: ER Accession/Order Number: [id number] Exam Date: 01/09/2025 20:30 Report Date: 01/09/2025 21:16 At the request of: MIRIAM HAYWARD DO Procedure: CT abdomen pelvis wo con CT abdomen pelvis wo con 01/09/2025 8:45 PM SIGNS AND SYMPTOMS: ^epigastric pain, recent vertebral lesions on CT ch \S.br\ TECHNIQUE: Multidetector ct axial images of the abdomen and pelvis were obtained without IV contrast. Multiplanar reformats were performed and reviewed to further define anatomy and possible pathology. CT was performed with one or more of the following dose reduction techniques: Automated exposure control, adjustment of the mA and/or kV according to patient size, or use of iterative reconstruction technique. COMPARISON: 07/16/2021 FINDINGS: Lower Chest: There is scarring or atelectasis in the lung bases. ABDOMEN: Liver: Calcified granulomas are noted in the liver. Bile Ducts: Normal caliber. Gallbladder: No calcified gallstones. Normal caliber wall. Pancreas: Within normal limits. Spleen: Calcified granulomas are present in the spleen. Adrenals: Within normal limits. Kidneys: Within normal limits. Pelvis: Reproductive Organs: No pelvic masses. Ureters: Within normal limits. Bladder: Within normal limits. Bowel: Normal caliber. Mesenteric Lymph Nodes: No enlarged mesenteric lymph nodes. Peritoneum: No ascites or free air, no fluid collection. Vessels: within normal limits Retroperitoneum: Within normal limits. Abdominal Wall: Within normal limits. Bones: There is a 1 cm lucency in the left iliac bone. There is a 5 mm lucency in the right iliac bone. There is an 8 mm lucency within the L1 vertebral. A bony destructive process is redemonstrated in the anterior aspect of the left fourth rib. CT/CT abdomen pelvis wo con IMPRESSION: No mass or abnormal postcontrast enhancement within the abdominal or pelvic viscera. There is a 1 cm lucency in the left iliac bone. There is a 5 mm lucency in the right iliac bone. There is an 8 mm lucency within the L1 vertebral. A bony destructive process is redemonstrated in the anterior aspect of the left fourth rib. These are suspicious for malignancy. Impression dictated by: Diaz Zamora M.D. 01/09/2025 9:16 PM Dictation Location: [place] [address] Electronically authenticated by: [id number] Y Date: 01/09/2025 21:16
[2025-01-09] MEDS: HYDROMORPHONE HCL 1 MG/ML CARTRIDGE IV (20:52)
[2025-01-09] MEDS: OXYCODONE HCL/ACETAMINOPHEN 5MG/325MG 2 TAB PO (21:56)
== END 2025-01-09 22:17 | disposition home or self-care (01) ==
PROVIDERS: Emergency Provider Emergency Medicine; PCP Nurse Practitioner
DX: M89.59 Osteolysis, multiple sites (principal)
CPT/HCPCS: 36415; 71045; 71275; 74176; 80048; 84484; 85025; 93005; 96374; 96375; 99285; J1171; J2270; Q9967